=== PATIENT | female | born 1930 | race Caucasian/White ===

== ENCOUNTER 2018-05-20 10:20 | Outpatient (CLI) | payer MEDICARE ==
--- NOTE | 2018-05-20 11:04 | XRAY Report ---
Reason: DYSPHAGIA Procedure Date: 05/20/2018 Accession Number: [id number] / [id number] Procedure: FL - Modified Barium Swallow W/SP CPT Code: FULL RESULT: EXAM: MODIFIED BARIUM SWALLOW EXAM DATE: 05/20/2018 10:46 AM. CLINICAL HISTORY: DYSPHAGIA. COMPARISON: None. TECHNIQUE: Under the direction of speech pathology, patient swallowed various consistencies of barium under lateral fluoroscopic observation of the neck. Fluoroscopy Time: 1 minute and 7 seconds. Number of Images: 61. FINDINGS: Swallowing Mechanism: Normal oral phase and swallowing reflex. Airway Protection: Normal epiglottic motion. No episodes of tracheal penetration or aspiration with all consistencies of barium. 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 Other: None. IMPRESSION: No aspiration. 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 RADIA
== END 2018-05-20 10:21 | disposition home or self-care (01) ==
LOC: DI 10:20
PROVIDERS: ATTEND Family Medicine
DX: R13.13 Dysphagia, pharyngeal phase (principal); K22.5 Diverticulum of esophagus, acquired
CPT/HCPCS: 74230

== ENCOUNTER 2018-11-07 17:08 | Emergency (ER) | payer MEDICARE, OTHER ==
[2018-11-07 17:16] VITALS: BP 172/90
[2018-11-07] MEDS ORDERED: BUFFERED LIDOCAINE 10 ML SYRINGE SUBQ STA (17:24)
--- NOTE | 2018-11-07 18:11 | ED Physician Documentation ---
PD HPI UPPER EXT INJURY - Stated complaint Stated Complaint: LT FING LAC - Chief complaint Chief Complaint: Laceration - History obtained from History obtained from: Patient - History of Present Illness Location: Left, Finger (index) Type of injury: Laceration Where injury occurred: Home Timing - onset: Today Timing - duration: Minutes Timing - details: Abrupt onset, Still present Improved by: Rest, Immobilization Worsened by: Moving, Palpating Associated symptoms: No: Weakness, Numbness, Tingling, Swelling Contributing factors: No: Anticoagulated Similar symptoms before: Diagnosis (laceration) Recently seen: Surgery - Additonal information Additional information: 87-year-old female was cutting a piece of frozen meat with a knife the knife slipped and she sliced the top of her left index finger. She is come in now for suturing. She believes she is up-to-date on her tetanus. She did have a Zenker's diverticula removed in [place] and was discharged from the hospital there 2 days ago. She is otherwise been well and very healthy. Review of Systems Constitutional: denies: Fever Nose: denies: Congestion Throat: denies: Sore throat Respiratory: denies: Cough GI: denies: Vomiting Skin: reports: Laceration (s). denies: Rash Musculoskeletal: denies: Neck pain, Back pain, Extremity pain Neurologic: denies: Generalized weakness, Focal weakness, Numbness PD PAST MEDICAL HISTORY - Past Medical History Past Medical History: No - Past Surgical History Past Surgical History: No - Allergies Allergies/Adverse Reactions: Allergies Allergy/AdvReac Type Severity Reaction Status Date / Time No Known Drug Allergies Allergy Verified 11/07/18 17:16 - Social History Does the pt smoke?: No Smoking Status: Never smoker Does the pt drink ETOH?: No Does the pt have substance abuse?: No - Immunizations Immunizations are current?: Yes - POLST Patient has POLST: No PD ED PE NORMAL - Vitals Vital signs reviewed: Yes (hypertensive ) - General General: Alert and oriented X 3, No acute distress, Well developed/nourished - HEENT HEENT: Atraumatic, PERRL, EOMI - Respiratory Respiratory: No respiratory distress - Derm Derm: Normal color, Warm and dry, No rash - Extremities Extremities: No deformity, No edema, Other (There is a 3cm laceration over the dorsum of the left index finger over the MCP joint. There is no involvment of deeper structures and the distal n/v is intact. ) - Neuro Neuro: Alert and oriented X 3, acid maker 2-12 intact, No motor deficit, No sensory deficit, Normal speech Eye Opening: Spontaneous Motor: Obeys Commands Verbal: Oriented GCS Score: 15 - Psych Psych: Normal mood, Normal affect Results - Vitals Vitals: Vital Signs - 24 hr 11/07/18 17:14 Temperature 36.7 C Heart Rate 66 Respiratory 16 Rate Blood Pressure 172/90 H O2 Saturation 95 Oxygen O2 Source Room air Procedures - Laceration (location) left index Length in cm: 3 Wound type: Linear, Clean Neurovascular status: Sensory intact, Motor intact, Vascular intact Anesthesia: Lidocaine 1%, With bicarb Wound Preparation: Hibiclens, Irrigated copiously NS, Wound explored, To the base Skin layer closure: Nylon, Interrupted, Size #-0 - enter number (5-0) Other: Patient tolerated well, No complications, Neurovascular intact, Dressing applied, Tetanus UTD Complexity: Simple PD MEDICAL DECISION MAKING - ED course Complexity details: considered differential, d/w patient ED course: 87-year-old female with finger laceration is sutured and tolerates this well. Departure - Departure Disposition: 01 Home, Self Care Clinical Impression: Finger laceration Qualifiers: Encounter type: initial encounter Finger: index finger Damage to nail status: without damage Foreign body presence: without foreign body Laterality: left Qualified Code(s): S61.211A - Laceration without foreign body of left index finger without damage to nail, initial encounter Instructions: ED Laceration Hand Follow-Up: Hardy Higgins MD [Primary Care Provider] - Comments: Sutures should be removed in 10 days
== END 2018-11-07 18:18 | disposition home or self-care (01) ==
LOC: ED 17:08
DX: S61.211A Laceration without foreign body of left index finger without damage to nail, initial encounter (principal); W26.0XXA Contact with knife, initial encounter; Y93.G1 Activity, food preparation and clean up; Y92.009 Unspecified place in unspecified non-institutional (private) residence as the place of occurrence of the external cause
CPT/HCPCS: 12002; 99282; 99283

== ENCOUNTER 2019-05-16 18:00 | Outpatient (CLI) | payer MEDICARE, OTHER | END 2019-05-16 18:01 | disposition critical access hospital (66) | LOC: EMS 18:00 | PROVIDERS: ATTEND Surgery | DX: R55 Syncope and collapse (principal) | CPT/HCPCS: A0425; A0429 ==

== ENCOUNTER 2019-05-16 18:09 | Emergency (ER) | payer MEDICARE, OTHER ==
--- NOTE | 2019-05-16 18:35 | ED Physician Documentation ---
PD HPI SYNCOPE - Stated complaint Stated Complaint: SYNCOPAL EPISODE - Chief complaint Chief Complaint: Neuro - History obtained from History obtained from: Patient - History of Present Illness Pain level max: 4 Pain level now: 3 Similar symptoms before: Diagnosis (syncope) Recently seen: Not recently seen - Additional information Additional information: 88-year-old female states that she was at a birthday libertarian today. She states that she had half of a glass of alcohol. She had been standing for a while when her legs began to feel heavy and she had a syncopal event. She states that she was caught by bystanders and laid down on the floor. Does have some neck pain. Bystanders state that she was unconscious for 2 to 3 minutes. Patient states that she has had several episodes of similar events in the past with no cause found. No changes to her medications. Ate and drank normally today. No palpitations. No chest pain. No shortness of breath. Review of Systems Ten Systems: 10 systems reviewed and negative Constitutional: denies: Fever, Chills Ears: denies: Ear pain Nose: denies: Rhinorrhea / runny nose, Congestion Throat: denies: Sore throat Cardiac: denies: Chest pain / pressure, Palpitations Respiratory: denies: Cough GI: denies: Nausea, Vomiting, Diarrhea Skin: denies: Rash Musculoskeletal: reports: Neck pain. denies: Back pain Neurologic: denies: Headache PD PAST MEDICAL HISTORY - Past Medical History Past Medical History: Yes Other Past Medical History: syncope - Past Surgical History Past Surgical History: No - Allergies Allergies/Adverse Reactions: Allergies Allergy/AdvReac Type Severity Reaction Status Date / Time tetanus and diphtheria Allergy Rash Verified 05/16/19 18:27 toxoids - Living Situation Living Arrangement: reports: At home - Social History Does the pt smoke?: No Smoking Status: Never smoker Does the pt drink ETOH?: No Does the pt have substance abuse?: No - Immunizations Immunizations are current?: Yes - POLST Patient has POLST: No PD ED PE NORMAL - Vitals Vital signs reviewed: Yes - General General: Alert and oriented X 3, No acute distress, Well developed/nourished - HEENT HEENT: PERRL, EOMI, Moist mucous membranes, Other (No scalp hematomas.) - Neck Neck: Supple, no meningeal sign, Other (Mild midline tenderness palpation. No step-off or deformity.) - Cardiac Cardiac: RRR, No murmur, Strong equal pulses - Respiratory Respiratory: No respiratory distress, Clear bilaterally - Abdomen Abdomen: Soft, Non tender, Non distended - Derm Derm: Warm and dry - Extremities Extremities: No deformity, Normal ROM s pain, No edema - Neuro Neuro: Alert and oriented X 3, wreath machine tender 2-12 intact, No motor deficit, No sensory deficit, Normal speech - Psych Psych: Normal mood, Normal affect Results - Vitals Vitals: Oxygen O2 Source Room air - EKG (time done) 1829 Rate: Rate (enter#) (66) Rhythm: NSR Intervals: 1st degree AVB QRS: Normal Ischemia: Normal ST segments - Labs Labs: Laboratory Tests 05/16/19 05/16/19 05/16/19 18:41 18:41 18:41 WBC 8.9 RBC 4.14 L Hgb 12.8 Hct 38.5 MCV 93.0 MCH 30.9 MCHC 33.2 RDW 13.8 Plt Count 223 MPV 9.3 Neut # (Auto) 5.7 Lymph # (Auto) 2.1 [place] # (Auto) 0.9 Eos # (Auto) 0.2 Baso # (Auto) 0.1 Absolute Nucleated RBC 0.00 Nucleated RBC % 0.0 Sodium 142 Potassium 2.9 L Chloride 98 L Carbon Dioxide 28 Anion Gap 16.0 H BUN 37 H Creatinine 1.6 H Estimated GFR (MDRD) 30 L Glucose 109 H Calcium 9.0 Total Bilirubin 0.4 AST 33 ALT 24 Alkaline Phosphatase 76 Troponin I High Sens 8.5 Total Protein 6.6 L Albumin 4.1 Globulin 2.5 Albumin/Globulin Ratio 1.6 Lipase 42 Urine Color Urine Clarity Urine pH Ur Specific [place] Urine Protein Urine Glucose (UA) Urine Ketones Urine Occult Blood Urine Nitrite Urine Bilirubin Urine Urobilinogen Ur Leukocyte Esterase Urine RBC Urine WBC Ur Squamous Epith Cells Urine Bacteria Ur Microscopic Review Urine Culture Comments 05/16/19 19:25 WBC RBC Hgb Hct MCV MCH MCHC RDW Plt Count MPV Neut # (Auto) Lymph # (Auto) [place] # (Auto) Eos # (Auto) Baso # (Auto) Absolute Nucleated RBC Nucleated RBC % Sodium Potassium Chloride Carbon Dioxide Anion Gap BUN Creatinine Estimated GFR (MDRD) Glucose Calcium Total Bilirubin AST ALT Alkaline Phosphatase Troponin I High Sens Total Protein Albumin Globulin Albumin/Globulin Ratio Lipase Urine Color LT. YELLOW Urine Clarity CLEAR Urine pH 5.5 Ur Specific [place] 1.020 Urine Protein 100 H Urine Glucose (UA) NEGATIVE Urine Ketones NEGATIVE Urine Occult Blood SMALL H Urine Nitrite NEGATIVE Urine Bilirubin NEGATIVE Urine Urobilinogen 0.2 (NORMAL) Ur Leukocyte Esterase TRACE H Urine RBC 0-5 Urine WBC 4-5 Ur Squamous Epith Cells MANY Squamous H Urine Bacteria None Seen Ur Microscopic Review INDICATED Urine Culture Comments NOT INDICATED - Rads (name of study) Head CT Radiology: Prelim report reviewed, EMP read contemporaneously, See rad report (No acute abnormality) Cervical spine CT Radiology: Prelim report reviewed, EMP read contemporaneously, See rad report (No acute cervical spine fractures. ) cxr Radiology: Prelim report reviewed, EMP read contemporaneously, See rad report (1. Central bronchial wall thickening reflect underlying reactive airways or bronchitis. 2. No focal airspace consolidation seen worrisome for pneumonia. 3. Subtle densities projecting at the left apex and lateral aspect of the left lower lobe of unclear etiology. Pulmonary nodules not excluded. Nonemergent chest CT should be obtained for additional evaluation. ) PD MEDICAL DECISION MAKING - ED course Complexity details: reviewed results, re-evaluated patient, considered differential, d/w patient, d/w family ED course: 88-year-old female with a syncopal event. Unclear etiology. She is well- appearing, nontoxic. Afebrile. No acute findings on EKG, laboratory testing or radiographs. She does not want to go into the hospital for telemetry monitoring. She will follow-up with her doctor for further care. Patient counseled regarding signs and symptoms for which I believe and urgent re- evaluation would be necessary. Patient with good understanding of and agreement to plan and is comfortable going home at this time This document was made in part using voice recognition software. While efforts are made to proofread this document, sound alike and grammatical errors may occur. She also states that she will increase her water intake. Is drinking water h ere. Also given potassium here. Departure - Departure Disposition: 01 Home, Self Care Clinical Impression: Hypokalemia Syncope Qualifiers: Syncope type: unspecified Qualified Code(s): R55 - Syncope and collapse Condition: Good Instructions: ED Potassium Deficiency, ED Fainting Unkn Cause Follow-Up: Ifeoma Loera PA-C [Primary Care Provider] - Within 1 week Comments: The cause of your symptoms is unclear today. You should follow-up with your doctor next week. You may benefit from a insurance appraiser to wear at home. You should have your potassium rechecked next week as well. Return if you worsen Discharge Date/Time: 05/16/19 20:51
[2019-05-16 18:45] LABS: BASOPHILS # (AUTO) 0.1 10^3/uL (0.0-0.1); BASOPHILS % (AUTO) 1.1 %; EOSINOPHILS # (AUTO) 0.2 10^3/uL (0.0-0.7); HGB - HEMOGLOBIN 12.8 g/dL (12.0-16.0); LYMPHOCYTES # (AUTO) 2.1 10^3/uL (1.5-3.5); LYMPHOCYTES % (AUTO) 23.3 %; MEAN CORPUSCULAR HEMOGLOBIN 30.9 pg (27.0-31.0); MEAN CORPUSCULAR HGB CONC 33.2 g/dL (32.0-36.0); MEAN PLATELET VOLUME 9.3 fL (7.9-10.8); MONOCYTES # (AUTO) 0.9 10^3/uL (0.0-1.0); MONOCYTES % (AUTO) 9.6 %; NEUTROPHILS # (AUTO) 5.7 10^3/uL (1.5-6.6); NEUTROPHILS % (AUTO) 63.4 %; PLT - PLATELET COUNT 223 10^3/uL (130-450); RED BLOOD COUNT 4.14 10^6/uL (4.20-5.40); RED CELL DISTRIBUTION WIDTH 13.8 % (12.0-15.0); WHITE BLOOD COUNT 8.9 x10^3/uL (4.8-10.8)
[2019-05-16 18:59] LABS: ALBUMIN 4.1 g/dL (3.2-5.5); ALBUMIN/GLOBULIN RATIO 1.6 (1.0-2.2); BILIRUBIN,TOTAL 0.4 mg/dL (0.2-1.0); CREATININE 1.6 mg/dL (0.4-1.0); TOTAL PROTEIN 6.6 g/dL (6.7-8.2)
--- NOTE | 2019-05-16 19:35 | XRAY Report ---
Reason: Chest Pain Procedure Date: 05/16/2019 Accession Number: [id number] / [id number] Procedure: XR - Chest 1 View X-Ray CPT Code: 94412 FULL RESULT: EXAM: CHEST RADIOGRAPHY EXAM DATE: 05/16/2019 06:56 PM. CLINICAL HISTORY: Chest Pain. COMPARISON: None. TECHNIQUE: 1 view. FINDINGS: Lungs/Pleura: Central bronchial wall thickening is seen. Linear basilar opacities likely reflect atelectasis. Subtle subcentimeter densities project at the left apex and the lateral aspect of the left lower lobe of unclear etiology. No pneumothorax. Mediastinum: Normal heart size and mediastinum. Atheromatous plaque of the aortic arch. Other: None. IMPRESSION: 1. Central bronchial wall thickening reflect underlying reactive airways or bronchitis. 2. No focal airspace consolidation seen worrisome for pneumonia. 3. Subtle densities projecting at the left apex and lateral aspect of the left lower lobe of unclear etiology. Pulmonary nodules not excluded. Nonemergent chest CT should be obtained for additional evaluation. [facility]
[2019-05-16 19:40] LABS: BILIRUBIN,URINE NEGATIVE (NEGATIVE); GLUCOSE, URINE (UA) NEGATIVE (NEGATIVE); KETONES,URINE (UA) NEGATIVE (NEGATIVE); LEUKOCYTE ESTERASE, URINE TRACE (NEGATIVE); NITRITE,URINE NEGATIVE (NEGATIVE); OCCULT BLOOD,URINE SMALL (NEGATIVE); PH,URINE 5.5 PH (5.0-7.5); PROTEIN,URINE 100 mg/dL (NEGATIVE); UROBILINOGEN,URINE 0.2 (NORMAL) E.U./dL (NORMAL)
[2019-05-16] MEDS ORDERED: POTASSIUM CHLORIDE 20 MEQ TABLET PO STA (19:42)
[2019-05-16 19:45] LABS: CLARITY,URINE CLEAR (CLEAR)
[2019-05-16 19:51] LABS: BACTERIA,URINE None Seen /HPF (None Seen); RBC,URINE 0-5 /HPF (0-5); SQUAMOUS EPITHELIAL CELL,UR MANY Squamous (<= Few)
--- NOTE | 2019-05-16 20:07 | CT Report ---
Reason: headache s/p syncope Procedure Date: 05/16/2019 Accession Number: [id number] / [id number] Procedure: CT - HEAD WO CPT Code: FULL RESULT: EXAM: CT HEAD EXAM DATE: 05/16/2019 07:15 PM. CLINICAL HISTORY: Headache s/p syncope. COMPARISON: None. TECHNIQUE: Multiaxial CT images were obtained from the foramen magnum to the vertex. Reformats: Sagittal and coronal. IV contrast: None. In accordance with CT protocol optimization, one or more of the following dose reduction techniques were utilized for this exam: automated exposure control, adjustment of mA and/or KV based on patient size, or use of iterative reconstructive technique. FINDINGS: Parenchyma: No intraparenchymal hemorrhage. No evidence of mass, midline shift, or CT findings of acute infarction. Cox-white differentiation is distinct. Diffuse chronic microangiopathic white matter changes. Extraaxial Spaces: Normal for age. No subdural or epidural collections. Ventricles: The ventricles and cortical sulci are enlarged, consistent with age-related tissue loss. Sinuses and orbits: Imaged paranasal sinuses, orbits, and mastoids show no significant abnormality. Bones: Unremarkable. Other: None. IMPRESSION: Generalized age-related cortical atrophic changes without evidence of acute intracranial abnormality. [facility]
--- NOTE | 2019-05-16 20:07 | CT Report ---
Reason: neck pain s/p syncope Procedure Date: 05/16/2019 Accession Number: [id number] / [id number] Procedure: CT - CERVICAL SPINE WO CPT Code: FULL RESULT: EXAM: CT CERVICAL SPINE WITHOUT CONTRAST DATE: 05/16/2019 07:15 PM. HISTORY: Neck pain s/p syncope. COMPARISONS: None. TECHNIQUE: Thin-section axial images were acquired of the cervical spine without contrast. Post-processing: Coronal and sagittal reformats. Other: None. In accordance with CT protocol optimization, one or more of the following dose reduction techniques were utilized for this exam: automated exposure control, adjustment of mA and/or KV based on patient size, or use of iterative reconstructive technique. FINDINGS: Alignment: Within normal limits. No scoliosis or spondylolisthesis. Bones: No acute fractures. Severe multilevel degenerative disk disease, worse at C4-C5. Spinal Canal: No high grade narrowing. Other: The paravertebral and prevertebral soft tissues are unremarkable. Visualized thyroid is unremarkable. The partially imaged lung apices are clear. IMPRESSION: No acute cervical spine fractures. RADIA
[2019-05-16 20:20] VITALS: BP 134/80
== END 2019-05-16 20:51 | disposition home or self-care (01) ==
LOC: EDUNIT# → ED 18:09
DX: R55 Syncope and collapse (principal); E87.6 Hypokalemia; I44.0 Atrioventricular block, first degree; M50.321 Other cervical disc degeneration at C4-C5 level
CPT/HCPCS: 36415; 70450; 71045; 72125; 80053; 81001; 83690; 84484; 85025; 93005; 99283; 99284; A9270; 81003; 87086

== ENCOUNTER 2019-06-02 09:15 | Outpatient (CLI) | payer MEDICARE, OTHER ==
[2019-06-02 12:54] LABS: CALCIUM 9.9 mg/dL (8.5-10.3); CREATININE 1.7 mg/dL (0.4-1.0)
== END 2019-06-02 23:59 | disposition home or self-care (01) ==
LOC: LAB.WCP 09:15
PROVIDERS: ATTEND Physician Assistant Medical
DX: R55 Syncope and collapse (principal)
CPT/HCPCS: 36415; 80048

== ENCOUNTER 2019-06-10 12:28 | Outpatient (CLI) | payer MEDICARE, OTHER ==
--- NOTE | 2019-06-11 09:22 | CT Report ---
Reason: ABN CHEST XRAY Procedure Date: 06/10/2019 Accession Number: [id number] / [id number] Procedure: CT - CHEST WO CPT Code: Final Report FULL RESULT: EXAM: CT CHEST EXAM DATE: 06/10/2019 01:00 PM. CLINICAL HISTORY: ABN CHEST XRAY. COMPARISONS: CHEST 1 VIEW 05/16/2019 6:41 PM. TECHNIQUE: Routine helical CT imaging was performed through the chest. IV contrast: None. Reconstructions: Coronal and sagittal. In accordance with CT protocol optimization, one or more of the following dose reduction techniques were utilized for this exam: automated exposure control, adjustment of mA and/or KV based on patient size, or use of iterative reconstructive technique. FINDINGS: Lungs/Pleura: Linear changes are noted in the lung bases most likely represent atelectasis or scarring. Mild bronchiectasis is noted bilaterally. There is no focal infiltrate, pleural effusion or pneumothorax seen. Mediastinum: No mediastinal mass is identified. There is atherosclerosis of the aorta. Bones: There is kyphosis of the thoracic spine. A sclerotic lesion is noted in the mid thoracic vertebral body that most likely represents a benign enostosis or hemangioma and unlikely to represent a metastasis. Visualized Abdomen: Visualized upper abdominal organs demonstrate a normal noncontrast CT appearance IMPRESSION: Diffuse mild bronchiectasis of the lungs. Linear changes in the lung bases that may represent scarring or atelectasis. No evidence of a lung mass or infiltrate. Kyphosis of the thoracic spine. RADIA
== END 2019-06-10 12:29 | disposition home or self-care (01) ==
LOC: DI 12:28
PROVIDERS: ATTEND Physician Assistant Medical
DX: J47.9 Bronchiectasis, uncomplicated (principal); M40.294 Other kyphosis, thoracic region
CPT/HCPCS: 71250